=== PATIENT | male | born 1965 | race Caucasian/White ===

== ENCOUNTER 2019-12-14 18:33 | Inpatient (IN) ==
[2019-12-14] MEDS ORDERED: KETOROLAC TROMETHAMINE 15 MG/ML VIAL IV STA (18:55)
[2019-12-14] MEDS ORDERED: ONDANSETRON INJ 2 MG/ML 2 ML VIAL IV STA (18:55)
[2019-12-14] MEDS ORDERED: SODIUM CHLORIDE 0.9% 1000ML 1,000 ML IV SCH (19:00)
[2019-12-14 19:31] LABS: Basophils # (auto) 0.02 K/uL (0-0.2); Basophils % (auto) 0.3 %; Eosinophils # (auto) 0.06 K/uL (0-0.5); Hematocrit (blood only) 43.4 % (42-52); Hemoglobin 15.8 g/dL (14.0-18.0); Immature Granulocytes # (auto) 0.01 K/uL (0.00-0.02); Immature Granulocytes % (auto) 0.2 %; Lymphocytes # (auto) 1.43 K/uL (1.2-3.4); Lymphocytes % (auto) 23.6 %; Mean Corpuscular Hemoglobin 33.2 pg (25-34); Mean Corpuscular Hgb Conc 36.4 g/dL (32-36); Mean Corpuscular Volume 91.2 fL (80-100); Mean Platelet Volume 9.9 fL (7.4-10.4); Monocytes # (auto) 0.61 K/uL (0.11-0.59); Monocytes % (auto) 10.1 %; Neutrophils # (auto) 3.92 K/uL (1.4-6.5); Neutrophils % (auto) 64.8 %; Platelet Count 286 K/uL (130-400); RDW Standard Deviation 43.2 fL (36.4-46.3); Red Blood Count 4.76 M/uL (4.7-6.1); White Blood Count 6.05 K/uL (4.8-10.8)
[2019-12-14 19:45] LABS: Partial Thromboplastin Ratio 0.8; Partial Thromboplastin Time 22.2 Seconds (21.0-31.0); Prothrombin Time 10.7 Seconds (9.0-12.0)
[2019-12-14 20:07] LABS: Bilirubin Direct 3.9 mg/dl (0-0.2); Calcium 9.5 mg/dl (8.5-10.1); Creatinine Clr Calc Pharmacy 65.2 ml/min; Est GFR (African American) 65.6; Est GFR (Non-African American) 56.6
[2019-12-14 20:11] LABS: Bilirubin,Total 5.7 mg/dl (0.2-1); Total Protein 7.7 gm/dl (6.4-8.2)
[2019-12-14 20:28] LABS: Potassium 2.7 mmol/L (3.5-5.1)
--- NOTE | 2019-12-14 20:37 | History & Physical Report ---
Date of Service December 14, 2019 Assessment & Plan (1) Cholelithiasis with biliary obstruction: Cholelithiasis with intrahepatic and extrahepatic biliary obstruction/jaundice/gallstones- NPO MRCP tonight. Consult gastroenterology if ERCP needed. Consult general surgery after work-up complete. Ceftriaxone 1 g IV daily NSS + KCl 20 mEq at 100 mils per hour Zofran 4 mg IV every 6 hours as needed.. Famotidine 20 mg IV every 12 hours Morphine sulfate 4 mg IV every 3 hours as needed severe pain Toradol 30 mg IV every 6 hours PRN moderate pain Present on Admission?: Yes (2) Jaundice: See above Present on Admission?: Yes (3) Gallstones: See above Present on Admission?: Yes (4) GERD (gastroesophageal reflux disease): Change oral pantoprazole to IV famotidine Present on Admission?: Yes (5) Hypertension: Hold lisinopril/HCTZ Present on Admission?: Yes History of Present Illness Chief Complaint: The patient presents to the ED after being referred from the outpatient office due to abnormal LFT's and abdominal US. Primary Care Provider: Yoshi Perea MD The patient is a 54 yo Male who developed abdominal discomfort and nausea 4 days ago on Tuesday. He was seen at the outpatient office, and labs and abdominal US ordered were abnormal, and he was sent to the ED for further assessment. Allergies Allergy/AdvReac Type Severity Reaction Status Date / Time kiwi Allergy Unknown Unknown Unverified 12/14/19 19:50 pollen extracts Allergy Unknown WATERY Verified 12/14/19 19:50 EYES AND CONGESTION shellfish derived Allergy Unknown SOB, Verified 12/14/19 19:50 SWEATING No Known Drug Allergies Allergy Unknown Verified 12/14/19 19:50 Home Medications Home Medications Medication Instructions Recorded Confirmed Type lisinopril 20 1 tab PO DAILY 06/07/19 12/14/19 History mg-hydrochlorothiazide 12.5 mg tablet pantoprazole 40 mg tablet,delayed 40 mg PO DAILY #30 tab 12/13/19 12/14/19 Rx release Marshmallow Supp 1 tab PO DAILY 12/14/19 12/14/19 History aloe vera 0 mg PO DAILY 12/14/19 12/14/19 History amoxicillin-pot clavulanate 1 tab PO BID 5 Days #10 tab 12/18/19 Rx [Augmentin] oxycodone-acetaminophen [Percocet] 1 - 2 tab PO .q4-6h PRN #15 tab 12/18/19 Rx Past Med/Surg History Medical History Cardiac murmur A CHILD Chronic back pain GERD (gastroesophageal reflux disease) Hiatal hernia SMALL Hypertension (Unknown) Sleep apnea CPAP Temporomandibular joint disorder CLICKS ON OCC HAS NEVER LOCKED Surgical History (Updated 12/19/19 @ 09:09 by Sary Longoria RN) H/O eye surgery MUSCLE X 2 History of colonoscopy History of esophagogastroduodenoscopy (EGD) Nausea and vomiting after administration of anesthetic agent S/P laparoscopic cholecystectomy 12/17/[address] Kye Hinson Status post endoscopic retrograde cholangiopancreatography 12/17/19 Dr. 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 Beer every we Hx Substance Use: No caffeine: Yes (coffee 1-2 a day) during the past year weight has: remained stable Dental Care, Regularly: Yes Physical Activity Frequency: 1-2 Times per Week Seatbelt Use: always Sunscreen Use: Yes Review of Systems Review of Systems: The patient denies chest pain, palpitations, shortness of breath, dyspnea on exertion, cough, lower extremity swelling, sore throat, fevers, chills, sweats, vomiting, diarrhea , constipation,pelvic pain, blood in urine or stool, dysuria, urinary frequency or urgency, lightheadedness, dizziness, headache, memory loss, loss of consciousness, rash, abnormal bruising or bleeding, imbalance, focal or generalized weakness, numbness or tingling in arms or legs, generalized arthralgias or myalgias, neck pain, or night sweats. The review of systems is otherwise negative other than for that already noted above, and at least 10 systems have been reviewed. Physical Exam Physical Exam: The patient is awake, alert and oriented 3, well developed and well nourished, normocephalic and atraumatic, lying in bed and in no acute distress. HEENT--PERRL, EOMI, scleral icterus noted. Mucous membranes and oropharynx dry. Neck--supple. No JVD. No bruits. Thyroid normal, trachea midline, no adenopathy. Heart--normal S1 and S2. No murmurs, rubs or gallops. Lungs--clear bilaterally, no respiratory distress, no accessory muscle use. Abdomen--normal bowel sounds and soft. Nondistended. Mildly tender epigastrium and right upper quadrant. Mildly tympanitic. Extremities--no cyanosis or clubbing. No edema. Dermatologic--normal skin turgor, jaundiced appearing Neurologic--cranial nerves II through XII grossly intact. Rheumatologic--normal range of motion. Psychiatric--normal affect. Results & Data Vital Signs (Past 12 Hours) Vital Signs Temp Pulse Pulse Resp BP BP Pulse Ox 12/14/19 19:37 99 12/14/19 19:36 64 18 131/96 99 12/14/19 18:41 98.1 F 82 18 145/101 H 98 Laboratory Results Laboratory Results WBC 6.05 K/uL (4.8-10.8) 12/14/19 19:00 RBC 4.76 M/uL (4.7-6.1) 12/14/19 19:00 Hgb 15.8 g/dL (14.0-18.0) 12/14/19 19:00 Hct 43.4 % (42-52) 12/14/19 19:00 MCV 91.2 fL (80-100) 12/14/19 19:00 MCH 33.2 pg (25-34) 12/14/19 19:00 MCHC 36.4 g/dL (32-36) H 12/14/19 19:00 RDW Std Deviation 43.2 fL (36.4-46.3) 12/14/19 19:00 RDW Coeff of Maia 13.0 % (11.5-14.5) 12/14/19 19:00 Plt Count 286 K/uL (130-400) 12/14/19 19:00 MPV 9.9 fL (7.4-10.4) 12/14/19 19:00 Immature Gran % (Auto) 0.2 % 12/14/19 19:00 Neut % (Auto) 64.8 % 12/14/19 19:00 Lymph % (Auto) 23.6 % 12/14/19 19:00 [place] % (Auto) 10.1 % 12/14/19 19:00 Eos % (Auto) 1.0 % 12/14/19 19:00 Baso % (Auto) 0.3 % 12/14/19 19:00 Immature Gran # (Auto) 0.01 K/uL (0.00-0.02) 12/14/19 19:00 Neut # (Auto) 3.92 K/uL (1.4-6.5) 12/14/19 19:00 Lymph # (Auto) 1.43 K/uL (1.2-3.4) 12/14/19 19:00 [place] # (Auto) 0.61 K/uL (0.11-0.59) H 12/14/19 19:00 Eos # (Auto) 0.06 K/uL (0-0.5) 12/14/19 19:00 Baso # (Auto) 0.02 K/uL (0-0.2) 12/14/19 19:00 PT 10.7 Seconds (9.0-12.0) 12/14/19 19:00 INR 1.0 (0.9-1.1) 12/14/19 19:00 APTT 22.2 Seconds (21.0-31.0) 12/14/19 19:00 PTT Ratio 0.8 12/14/19 19:00 Sodium 138 mmol/L (136-145) 12/14/19 19:00 Potassium 2.7 mmol/L (3.5-5.1) L D 12/14/19 19:00 Chloride 102 mmol/L (98-107) 12/14/19 19:00 Carbon Dioxide 29 mmol/L (21-32) 12/14/19 19:00 Anion Gap 7.0 (3-11) 12/14/19 19:00 BUN 10 mg/dl (7-18) 12/14/19 19:00 Creatinine 1.40 mg/dl (0.6-1.4) D 12/14/19 19:00 Est Cr Clr Drug Dosing 65.2 ml/min 12/14/19 19:00 Est GFR ( Amer) 65.6 12/14/19 19:00 Est GFR (Non-Af Amer) 56.6 12/14/19 19:00 BUN/Creatinine Ratio 7.0 (10-20) L 12/14/19 19:00 Glucose 107 mg/dl (70-99) H 12/14/19 19:00 Calcium 9.5 mg/dl (8.5-10.1) 12/14/19 19:00 Total Bilirubin 5.7 mg/dl (0.2-1) H 12/14/19 19:00 Direct Bilirubin 3.9 mg/dl (0-0.2) H 12/14/19 19:00 AST 172 U/L (15-37) H 12/14/19 19:00 ALT 501 U/L (12-78) H 12/14/19 19:00 Alkaline Phosphatase 145 U/L (45-117) H 12/14/19 19:00 Total Protein 7.7 gm/dl (6.4-8.2) 12/14/19 19:00 Albumin 4.0 gm/dl (3.4-5.0) 12/14/19 19:00 Lipase 192 U/L (73-393) 12/14/19 19:00 Diagnostic Findings [facility] [place] [place] [phone] Ultrasound Report Patient: CHICHI SEAMAN DAdmit Date: 12/14/19 MR#: [id number] Acct ID:[id number]: Date: 1965City Zip: [place] [address] Age: 54Location: [place] Sex: M Room/Bed: Att Phy: Lucita Galvan-CDiagnosis: RIGHT UPPER QUAD PAIN,GERD,EPIGASTRIC PAIN Юлия Phy: Yoshi Perea, MDService Date: 12/14/19 [facility] Phy:Interpreting Phy: Negrito Gregorio MD Admit Phy: Ordering Phy: Lucita Galvan PA-C cc: ~ BILIARY ULTRASOUND CLINICAL HISTORY: R10.13 Epigastric pain COMPARISON STUDY: No previous studies for comparison. FINDINGS: The pancreas is largely obscured. The head and proximal body were unremarkable in appearance. There is a 5 mm left lobe hepatic cyst. There is intrahepatic biliary ductal dilatation. The common bile duct measures 11 mm. Multiple gallbladder calculi are visualized. There is also sludge present within the gallbladder. There is also evidence for ring down artifact suggesting adenomyomatosis. There is no significant gallbladder wall thickening. There is no right-sided hydronephrosis. IMPRESSION: 1. Cholelithiasis with intra and extrahepatic biliary ductal dilatation. ACT 112: Negative or not required by law. Electronically signed by: Negrito Gregorio M.D. 12/14/2019 9:29 AM Dictated: 12/14/1927 Transcribed: 12/14/1927 Code Status & VTE Plan Code Status Full code VTE Prophylaxis Plan VTE Prophylaxis will be ordered: Yes PG Care Time/CCT Total # of Minutes Spent Total Time Spent with Patient: Total time spent is greater than 50% in coordination of care (as documented) at patient's floor/unit and/or counseling patient: Coding Level of Care Code 27471 Initial Inpt Care Lvl 3 Diagnoses Cholelithiasis with biliary obstruction K80.21 Jaundice R17 Gallstones K80.20 GERD (gastroesophageal reflux disease) K21.9 Hypertension I10
[2019-12-14] MEDS ORDERED: KETOROLAC 30 MG/ML VIAL IV PRN (21:35)
[2019-12-14] MEDS ORDERED: MoRPHine SULFATE 4 MG/ML 1 ML CARP\\VIAL IV PRN (22:06)
[2019-12-14] MEDS ORDERED: ONDANSETRON INJ 2 MG/ML 2 ML VIAL IV PRN (22:06)
[2019-12-14] MEDS ORDERED: cefTRIAXone SODIUM 1,000 MG/50 ML BAG IV STA (22:06)
[2019-12-14] MEDS: cefTRIAXone SODIUM 1,000 MG in DEXTROSE 5% 50 ML IV SCH (22:37)
[2019-12-14] MEDS: FAMOTIDINE 20 MG in SYRINGE 3 ML IV SCH (23:43)
[2019-12-14] MEDS: NSS + 20MEQ KCL 20 MEQ/1,000 ML BAG IV SCH (23:43)
--- NOTE | 2019-12-14 23:45 | Emergency Department Note ---
Entered by Ronda Le acting as a scribe for Edinson Porter History of Present Illness General Chief complaint: Referred by Doctor Stated complaint: ABD PAIN - STONES AND BAD LIVER ENZYMES Time Seen by Provider: 12/14/19 18:53 Source: patient History of Present Illness Onset (ago): hour(s) (just prior to arrival) Location: head (general ) Pain Consistency: + other (episode ) Maximum Pain Intensity: 5 Current Pain Intensity: 5 Quality: + other (abnormal lab work ) Associated symptoms: + other (positive abdominal pain ); no fever/chills The patient is a 54 year old male who presents to the Emergency Room with complaints of an episode of abnormal labs that occurred just prior to arrival. The patient states that he had labs done yesterday afternoon and a gallbladder ultrasound today and was told to come to the ED after these results came back. The patient reports that he has had abdominal pain over the past several days. He rates this pain as a 5/10. The patient denies any fevers during this time. Home Medications Home Medications Medication Instructions Recorded Confirmed Type lisinopril 20 1 tab PO DAILY 06/07/19 12/14/19 History mg-hydrochlorothiazide 12.5 mg tablet pantoprazole 40 mg tablet,delayed 40 mg PO DAILY #30 tab 12/13/19 12/14/19 Rx release Marshmallow Supp 1 tab PO DAILY 12/14/19 12/14/19 History acetaminophen [Tylenol Extra 1,000 mg PO Q6H PRN 12/14/19 12/14/19 History Strength] aloe vera 0 mg PO DAILY 12/14/19 12/14/19 History Allergies Allergy/AdvReac Type Severity Reaction Status Date / Time kiwi Allergy Unknown Unknown Unverified 12/14/19 19:50 pollen extracts Allergy Unknown WATERY Verified 12/14/19 19:50 EYES AND CONGESTION shellfish derived Allergy Unknown SOB, Verified 12/14/19 19:50 SWEATING No Known Drug Allergies Allergy Unknown Verified 12/14/19 19:50 Past Med/Surg History Medical History (Updated 12/14/19 @ 21:32 by Paco Vergara MD) Cardiac murmur A CHILD Chronic back pain GERD (gastroesophageal reflux disease) Hiatal hernia SMALL Hypertension (Unknown) Sleep apnea CPAP Temporomandibular joint disorder CLICKS ON OCC HAS NEVER LOCKED Surgical History H/O eye surgery MUSCLE X 2 History of colonoscopy History of esophagogastroduodenoscopy (EGD) Nausea and vomiting after administration of anesthetic agent Family History Father Family history of esophageal cancer, Onset Age: 60 age 62 Brother Family hx of colon cancer, Onset Age: 61 Social History Preferred Language: Slovak Communication Ability: Effective 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 Beliefs That Will Affect Care: None marital status: Current Living Situation: Spouse and Family current occupational status: employed current occupation: Insurance [employer] Other Information That Helps Us Care for You: No Feels Safe at Home: Yes Safety Concerns: Feels Safe At This Time Smoking Status: Never smoker Do You Dip or Chew Tobacco: No ; Second Hand Exposure: No ; Tobacco Cessation Education Requested by Patient: No Hx Alcohol Use: Yes Alcohol type: beer and wine Alcohol Intake Frequency: Weekly Alcohol Intake Frequency Comment: 1 glass ine 2 times a week, ocassional mixed drink 4 months. Beer every we Hx Substance Use: No caffeine: Yes (coffee 1-2 a day) during the past year weight has: remained stable Dental Care, Regularly: Yes Physical Activity Frequency: 1-2 Times per Week Seatbelt Use: always Sunscreen Use: Yes Review of Systems See HPI for pertinent positives & negatives. and A total of 10 systems reviewed and were otherwise negative Physical Exam Vital Signs Vital Signs - 24 hr 12/14/19 18:41 12/14/19 19:36 12/14/19 19:37 Temperature 36.7 C Temperature Source Oral Pulse Rate 82 Pulse Rate [Left Finger] 64 Pulse Rhythm Regular Pulse Strength Normal Respiratory Rate 18 18 Respiratory Effort / Characteristics Non-Labored Spontaneous Respiratory Depth Normal Respiratory Pattern Regular Blood Pressure 145/101 H Blood Pressure [Left Arm] 131/96 Blood Pressure Mean 115 Blood Pressure Mean [Left Arm] 107 Blood Pressure Position Sitting Pulse Oximetry 98 99 99 Oxygen Delivery Method Room Air Room Air Sepsis Recent Fever Within 48 Hours No Sepsis New/Unexplained Change in Mental Status No Sepsis Action Taken by Nursing No Action Required GENERAL: He is oriented to person, place, and time. He appears well-developed and well-nourished. He does not appear distressed. HENT: Exam performed. - Head: Normocephalic and atraumatic. - Right Ear: External ear normal. No mastoid tenderness. - Left Ear: External ear normal. No mastoid tenderness. - Mouth/Throat: The oropharynx is clear and moist. No trismus in the jaw. No dental abscesses or uvula swelling. No oropharyngeal exudate or tonsillar abscesses. EYES: Conjunctivae and EOM are normal. Pupils are equal, round, and reactive to light. Right eye exhibits no discharge. Left eye exhibits no discharge. Scleral icterus present. NECK: Normal range of motion. Neck supple. No JVD present. No spinous process tenderness present. No carotid bruit present. No rigidity. No tracheal deviation and normal range of motion present. No Brudzinski's sign and no Kernig's sign noted. CV: Normal rate, regular rhythm, normal heart sounds and intact distal pulses. There is no peripheral edema. Palpable radial pulses bue. PULM/CHEST: Effort normal and breath sounds normal. No respiratory distress. No stridor. He has no wheezes. He has no rales. - Chest Wall: He exhibits no tenderness. ABD: The abdomen is soft. Bowel sounds are normal. He has no distension. No mass is present. There is no tenderness. There is no rebound, no guarding, no Null's sign and no tenderness at McBurney's point. Rovsig negative. MUSC/SKEL: Normal range of motion. There is no peripheral edema, tenderness or deformity. LYMPH: No cervical adenopathy. NEURO: He is alert and oriented to person, place, and time. He has normal strength. No cranial nerve deficit or sensory deficit. Coordination and gait normal. GCS eye subscore is 4. GCS verbal subscore is 5. GCS motor subscore is 6. Cerebellar tests wnl. SKIN: Skin is warm and dry. He is not diaphoretic. PSYCH: He has a normal mood and affect. Behavior is normal. Judgment and thought content normal. Course Course 185: Past medical records reviewed. The patient was evaluated in room C12B. A complete history and physical exam was performed. EMR reviewed showed that the patient had labs done today that showed a white count of 4.16, an AST of 152, ALT of 495, total bilirubin of 4.9, and alkaline phosphatase of 137. A gallbladder ultrasound today showed cholelithiasis and intra and extra hepatic biliary dilatation. Given these findings patient will be admitted for GI and surgical evaluation. I discussed the case with Dr. Vergara-[facility] Hospitalist who accepts the patient for further evaluation. Administered Medications Ceftriaxone Sodium 1,000 mg/ (Dextrose) 50 mls @ 100 mls/hr IV DAILY JAGUAR Stop: 12/24/19 10:29 Last Admin: 12/14/19 22:37 Dose: Not Given Documented by: [id number] Discontinued Medications Sodium Chloride (Nss 1000ml) 1,000 mls @ 125 mls/hr IV .Q8H JAGUAR Stop: 01/13/20 18:59 Last Infusion: 12/14/19 22:05 Dose: 0 mls/hr Documented by: [id number] Admin: 12/14/19 19:34 Dose: 125 mls/hr Documented by: [id number] Ketorolac Tromethamine (Toradol) 15 mg IV NOW STA Stop: 12/14/19 18:56 Last Admin: 12/14/19 19:34 Dose: 15 mg Documented by: [id number] Ondansetron HCl (Zofran) 4 mg IV NOW STA Stop: 12/14/19 18:56 Last Admin: 12/14/19 19:34 Dose: 4 mg Documented by: [id number] Medical Decision Making Medical Records Attestation: I reviewed the patient's medical records. Home Medications Current Medication List: was personally reviewed by me Laboratory Data Attestation: I reviewed the patient's lab results. Result diagrams: 12/14/19 19:00 12/14/19 19:00 Lab Results 12/14/19 12/14/19 12/14/19 Range/Units 19:00 19:00 19:00 WBC 6.05 (4.8-10.8) K/uL RBC 4.76 (4.7-6.1) M/uL Hgb 15.8 (14.0-18.0) g/dL Hct 43.4 (42-52) % MCV 91.2 (80-100) fL MCH 33.2 (25-34) pg MCHC 36.4 H (32-36) g/dL RDW Std Deviation 43.2 (36.4-46.3) fL RDW Coeff of Maia 13.0 (11.5-14.5) % Plt Count 286 (130-400) K/uL MPV 9.9 (7.4-10.4) fL Immature Gran % (Auto) 0.2 % Neut % (Auto) 64.8 % Lymph % (Auto) 23.6 % [place] % (Auto) 10.1 % Eos % (Auto) 1.0 % Baso % (Auto) 0.3 % Immature Gran # (Auto) 0.01 (0.00-0.02) K/uL Neut # (Auto) 3.92 (1.4-6.5) K/uL Lymph # (Auto) 1.43 (1.2-3.4) K/uL [place] # (Auto) 0.61 H (0.11-0.59) K/uL Eos # (Auto) 0.06 (0-0.5) K/uL Baso # (Auto) 0.02 (0-0.2) K/uL PT 10.7 (9.0-12.0) Seconds INR 1.0 (0.9-1.1) APTT 22.2 (21.0-31.0) Seconds PTT Ratio 0.8 Sodium 138 (136-145) mmol/L Potassium 2.7 L D (3.5-5.1) mmol/L Chloride 102 (98-107) mmol/L Carbon Dioxide 29 (21-32) mmol/L Anion Gap 7.0 (3-11) BUN 10 (7-18) mg/dl Creatinine 1.40 D (0.6-1.4) mg/dl Est Cr Clr Drug Dosing 65.2 ml/min Est GFR ( Amer) 65.6 Est GFR (Non-Af Amer) 56.6 BUN/Creatinine Ratio 7.0 L (10-20) Glucose 107 H (70-99) mg/dl Calcium 9.5 (8.5-10.1) mg/dl Total Bilirubin 5.7 H (0.2-1) mg/dl Direct Bilirubin 3.9 H (0-0.2) mg/dl AST 172 H (15-37) U/L ALT 501 H (12-78) U/L Alkaline Phosphatase 145 H (45-117) U/L Total Protein 7.7 (6.4-8.2) gm/dl Albumin 4.0 (3.4-5.0) gm/dl Lipase 192 (73-393) U/L Blood Pressure Blood Pressure Findings: Elevated blood pressure Blood Pressure Disposition: further management by hospitalist GIAN Narrative Past medical records reviewed. The patient was evaluated in room C12B. A c omplete history and physical exam was performed. EMR reviewed showed that the patient had labs done today that showed a white count of 4.16, an AST of 152, ALT of 495, total bilirubin of 4.9, and alkaline phosphatase of 137. A gallbladder ultrasound today showed cholelithiasis and intra and extra hepatic biliary dilatation. Given these findings patient will be admitted for GI and surgical evaluation. I discussed the case with Dr. Vergara-[facility] Hospitalist who accepts the patient for further evaluation. Impression & Plan Jaundice, Gallstones Discharge Plan Visit Data *Final* Discharge Date/Time: 12/14/19 21:57 Chief Complaint: Referred by Doctor Stated Complaint: ABD PAIN - STONES AND BAD LIVER ENZYMES ED Provider: Edinson Porter Discharge Problem: Jaundice, Gallstones Patient Disposition: Admitted As Inpatient Discharge Instructions Interventions: ED Discharge Assessment Last Done: 12/14/19 21:57 The scribe's documentation has been prepared under my direction and personally reviewed by me in its entirety. I confirm that the note above accurately reflects all work, treatment, procedures, and medical decision making performed by me.
[2019-12-15 07:09] LABS: Basophils # (auto) 0.03 K/uL (0-0.2); Basophils % (auto) 0.5 %; Eosinophils # (auto) 0.11 K/uL (0-0.5); Eosinophils % (auto) 1.8 %; Hematocrit (blood only) 38.1 % (42-52); Hemoglobin 13.2 g/dL (14.0-18.0); Immature Granulocytes # (auto) 0.02 K/uL (0.00-0.02); Immature Granulocytes % (auto) 0.3 %; Lymphocytes # (auto) 1.26 K/uL (1.2-3.4); Lymphocytes % (auto) 21.1 %; Mean Corpuscular Hemoglobin 31.9 pg (25-34); Mean Corpuscular Hgb Conc 34.6 g/dL (32-36); Mean Platelet Volume 9.6 fL (7.4-10.4); Monocytes # (auto) 0.64 K/uL (0.11-0.59); Monocytes % (auto) 10.7 %; Neutrophils # (auto) 3.92 K/uL (1.4-6.5); Neutrophils % (auto) 65.6 %; Platelet Count 222 K/uL (130-400); RDW Coefficient of Variation 13.2 % (11.5-14.5); RDW Standard Deviation 44.1 fL (36.4-46.3); Red Blood Count 4.14 M/uL (4.7-6.1); White Blood Count 5.98 K/uL (4.8-10.8)
--- NOTE | 2019-12-15 07:26 | Magnetic Resonance Report ---
MR MRCP HISTORY: cholelithiasis, bile duct dilatation, abnormal LFT TECHNIQUE: MRCP of the abdomen was performed without contrast cord to standard departmental protocol. COMPARISON STUDY: Abdominal ultrasound 12/14/2019. FINDINGS: There is a 5 mm T2 hyperintense lesion within the left hepatic lobe. There is a 7 mm T2 hyp erintense lesion within the lower pole the right kidney and a 1 cm T2 hyperintense exophytic lesion w ithin the interpolar region of the right kidney. These lesions likely represent cysts. The spleen, ad renal glands, and left kidney are unremarkable. No retroperitoneal lymphadenopathy. There is mild int ra and extra hepatic bile duct dilatation. The common bile duct measures 9 mm in diameter. The main p ancreatic duct is normal and course and caliber. No retroperitoneal lymphadenopathy. The gallbladder is mildly distended. There are multiple punctate gallstones. No gallbladder wall thickening. Equivoca l punctate stone at the distal common bile duct only seen on the axial fiesta sequences image 65. IMPRESSION: 1. Mild intra and extrahepatic bile duct dilatation. Questionable punctate stone at the distal common bile duct. ERCP follow-up recommended for further evaluation. 2. Cholelithiasis and a mildly distended gallbladder. No gallbladder wall thickening. 3. These findings were called/faxed to the referring physician following dictation. ACT 112: Negative or not required by law. Electronically signed by: Jose Carlos Horowitz M.D. 12/15/2019 7:24 AM
[2019-12-15 07:47] LABS: Albumin Level 3.1 gm/dl (3.4-5.0); BUN Creatinine Ratio 10.1 (10-20); Bilirubin,Total 4.4 mg/dl (0.2-1); Calcium 8.6 mg/dl (8.5-10.1); Creatinine Clr Calc Pharmacy 78.9 ml/min; Est GFR (Non-African American) 72.5; Globulin 3.2 gm/dl (2.5-4.0); Potassium 3.5 mmol/L (3.5-5.1); Total Protein 6.3 gm/dl (6.4-8.2)
[2019-12-15] MEDS: NSS + 20MEQ KCL 20 MEQ/1,000 ML BAG IV SCH ×2 (08:31→18:23)
[2019-12-15] MEDS: FAMOTIDINE 20 MG in SYRINGE 3 ML IV SCH ×2 (09:13→21:22)
--- NOTE | 2019-12-15 11:03 | Surgery Consultation ---
Date of Consultation December 15, 2019 Supervising Physician Co-Signing Physician Notes Patient likely with common bile duct junction from stones and debris from the gallbladder At some point he will need cholecystectomy, likely laparoscopic He may require ERCP and we can possibly coordinate the 2 procedures Continue current treatment for now History of Present Illness Attending Physician: Maikol Douglas MD History of Present Illness 54-year-old male admitted to the emergency room with epigastric pain which she has had over the last 3 to 4 days Found on work-up with elevated liver function studies and a total bilirubin greater than 5 Ultrasound shows all stones and dilated gallbladder with dilated common bile duct to 11 mm He underwent MRCP which shows possible stone/debris in the distal common bile duct Allergies Allergy/AdvReac Type Severity Reaction Status Date / Time kiwi Allergy Unknown Unknown Unverified 12/14/19 19:50 pollen extracts Allergy Unknown WATERY Verified 12/14/19 19:50 EYES AND CONGESTION shellfish derived Allergy Unknown SOB, Verified 12/14/19 19:50 SWEATING No Known Drug Allergies Allergy Unknown Verified 12/14/19 19:50 Home Medications Home Medications Medication Instructions Recorded Confirmed Type lisinopril 20 1 tab PO DAILY 06/07/19 12/14/19 History mg-hydrochlorothiazide 12.5 mg tablet pantoprazole 40 mg tablet,delayed 40 mg PO DAILY #30 tab 12/13/19 12/14/19 Rx release Marshmallow Supp 1 tab PO DAILY 12/14/19 12/14/19 History acetaminophen [Tylenol Extra 1,000 mg PO Q6H PRN 12/14/19 12/14/19 History Strength] aloe vera 0 mg PO DAILY 12/14/19 12/14/19 History Patient History Medical History (Updated 12/14/19 @ 21:32 by Paco Vergara MD) Cardiac murmur A CHILD Chronic back pain GERD (gastroesophageal reflux disease) Hiatal hernia SMALL Hypertension (Unknown) Sleep apnea CPAP Temporomandibular joint disorder CLICKS ON OCC HAS NEVER LOCKED Surgical History H/O eye surgery MUSCLE X 2 History of colonoscopy History of esophagogastroduodenoscopy (EGD) Nausea and vomiting after administration of anesthetic agent Family History Father Family history of esophageal cancer, Onset Age: 60 age 62 Brother Family hx of colon cancer, Onset Age: 61 Social History Preferred Language: Khmer Communication Ability: Effective Appointment Manager Required: No Beliefs That Will Affect Care: None marital status: Current Living Situation: Spouse and Family current occupational status: employed current occupation: [employer] Other Information That Helps Us Care for You: No Feels Safe at Home: Yes Safety Concerns: Feels Safe At This Time Smoking Status: Never smoker Do You Dip or Chew Tobacco: No ; Second Hand Exposure: No ; Tobacco Cessation Education Requested by Patient: No Hx Alcohol Use: Yes Alcohol type: beer and wine Alcohol Intake Frequency: Weekly Alcohol Intake Frequency Comment: 1 glass ine 2 times a week, ocassional mixed drink 4 months. Beer every we Hx Substance Use: No caffeine: Yes (coffee 1-2 a day) during the past year weight has: remained stable Dental Care, Regularly: Yes Physical Activity Frequency: 1-2 Times per Week Seatbelt Use: always Sunscreen Use: Yes Review of Systems Review of Systems: All systems reviewed & are unremarkable except as noted in HPI & below Physical Exam Constitutional: well nourished; no acute distress and not ill appearing Eyes: + anicteric sclerae Respiratory: normal respiratory effort; no respiratory distress Cardiovascular: Rate/Rhythm: regular rate and regular rhythm Gastrointestinal (Abdomen): Inspection/Auscultation: abdomen not distended Percussion/Palpation: + abdomen tender Skin: no rashes, warm and dry Neurologic: awake Psychiatric: Orientation: alert Results & Data Vital Signs (Past 12 Hours) Vital Signs Temp Pulse Resp BP Pulse Ox 12/15/19 07:20 37.3 C 61 18 128/69 96 12/15/19 00:04 36.8 C 60 20 144/86 H 99 I did review his ultrasound and MRCP PG Care Time/CCT Total # of Minutes Spent Total Time Spent with Patient: Total time spent is greater than 50% in coordination of care (as documented) at patient's floor/unit and/or counseling patient: Coding Level of Care Code 48845 Inpt Consult Level 4
--- NOTE | 2019-12-15 13:07 | Hospitalist Progress Note ---
Date of Service December 15, 2019 Assessment & Plan (1) Cholelithiasis with biliary obstruction: Cholelithiasis with intrahepatic and extrahepatic biliary obstruction/jaundice/gallstones- MRCP showing mild intra and extrahepatic bile duct dilatation. Questionable punctate stone at the distal common bile duct. ERCP follow-up recommended for further evaluation. Cholelithiasis and a mildly distended gallbladder. No gallbladder wall thickening. Consulted gastroenterology and surgery Continue Ceftriaxone 1 g IV daily NSS + KCl 20 mEq at 100 mils per hour Zofran 4 mg IV every 6 hours as needed.. Famotidine 20 mg IV every 12 hours Morphine sulfate 4 mg IV every 3 hours as needed severe pain Toradol 30 mg IV every 6 hours PRN moderate pain Some improvement in bili and transaminases today but still elevated (2) Jaundice: See above (3) Gallstones: See above (4) GERD (gastroesophageal reflux disease): Changed oral pantoprazole to IV famotidine (5) Hypertension: Continue to hold lisinopril/HCTZ, blood pressures stable Admission and Anticipated Discharge Date Admission Date: December 14, 2019 Subjective Mr. Bazan continues to have some ruq discomfort but otherwise has no complaints. No n/v/d. ROS Constitutional: no chills, aches, sweats or fever Respiratory: no sob,cough, sputum, or wheezing Cardiac: no chest pain, palpitations, edema, orthopnea or lightheadedness GI: no abdominal pain, nausea, vomiting, diarrhea or constipation : no dysuria or hesitancy Extremities: no joint pain or weakness Skin: no rash All other systems reviewed and negative Physical Exam Physical Exam: General: no distress Eyes: normal inspection, PERLL Respiratory: chest non tender, clear to auscultation, normal breath sounds, no respiratory distress, no accessory muscle use Cardiac: regular rate and rhythm, no rub or gallop, no murmur, no edema, no jvd GI/: active bowel sounds, no abd pain or tenderness, soft, non distended Extremities: normal range of motion, normal strength, non tender Neuro/Psych: alert and oriented x 3, normal mood and affect Skin: normal color, dry Results & Data ([facility]) Vital Signs (Past 12 Hours) Vital Signs Temp Pulse Resp BP Pulse Ox 12/15/19 07:20 37.3 C 61 18 128/69 96 PG Care Time/CCT Total # of Minutes Spent Total Time Spent with Patient: Total time spent is greater than 50% in coordination of care (as documented) at patient's floor/unit and/or counseling patient: Coding Level of Care Code 73418 Subseq Hosp Care Lvl 2 Diagnoses Cholelithiasis with biliary obstruction K80.21 Jaundice R17 Gallstones K80.20 GERD (gastroesophageal reflux disease) K21.9 Hypertension I10
[2019-12-15] MEDS: cefTRIAXone SODIUM 1,000 MG in DEXTROSE 5% 50 ML IV SCH (13:32)
--- NOTE | 2019-12-15 18:32 | Consultation Report ---
DATE OF CONSULTATION: 12/15/2019 GASTROENTEROLOGY CONSULTATION REFERRED BY: ABHISHEK Diaz. REASON FOR CONSULTATION: I was asked by Kendra Kenney to consult on this gentleman for evaluation of abdominal pain and abnormal liver enzymes. HISTORY OF PRESENT ILLNESS: The patient is a 54-year-old and his is present at the bedside. He presented to the Emergency Room, referred from his outpatient doctor's office because of abnormal liver enzymes. He has been developing abdominal discomfort and nausea for about 4 days and was found to have obstructive jaundice pattern on liver enzymes and was referred to the Emergency Room. He states that the pain is in the epigastric area radiating to the right upper quadrant and even sometimes to his shoulder. He denies any fevers. He has noticed that his urine has become a little bit darker and he has turned a little bit yellow. He has a history of GERD symptoms as well and his GERD is well controlled on his Protonix daily. He denies dysphagia. PAST MEDICAL HISTORY: I reviewed his medical records and his past medical history and his past medical history is significant for what is already mentioned as well as chronic back pain, hiatal hernia, hypertension, sleep apnea, and TMJ. OUTPATIENT MEDICATIONS: Include lisinopril/hydrochlorothiazide, pantoprazole. ALLERGIES: HE STATES HE IS ALLERGIC TO KIWI, POLLEN EXTRACTS, SHELLFISH. SOCIAL HISTORY: Not significant for active smoking and he only rarely drinks alcohol. FAMILY HISTORY: Significant for colon cancer and esophageal cancer. He is up to date on colon cancer screening and had a recent upper endoscopy. REVIEW OF SYSTEMS: As above, otherwise he denies any recent change in vision or hearing. He has had no seizures. He has had no productive cough or palpitations or shortness of breath on exertion. He denies any joint swelling. He denies any bruising or bleeding. He has had no dysuria. He denies any heat or cold intolerance. He denies any issues with ambulation. He has had no rashes. He denies any polyuria and polydipsia. PHYSICAL EXAMINATION: GENERAL: Reveals a pleasant gentleman with a recent blood pressure of 128/69, pulse is 61, temperature is 37.3 centigrade. HEENT: Skin is slightly icteric with slight icteric sclerae. Mouth is clear of lesions with moist mucous membranes. NECK: Supple. CHEST: Clear. HEART: Regular rate and rhythm. ABDOMEN: Benign with good bowel sounds. There is no organomegaly, masses, rebound tenderness noted. He does have some slight tenderness to deep palpation in the right upper quadrant and epigastric area. EXTREMITIES: Warm, good distal pulses. No edema. NEUROLOGIC: He is grossly intact and alert and oriented x3. LABORATORIES: Show a recent white blood cell count of 5.9, hemoglobin of 13.2 and a platelet count of 222,000. Liver enzymes show a total bilirubin yesterday of 5.7, down to 4.4 today, his AST is 154, ALT is 425, alkaline phosphatase is 118. IMAGING: Showed an MRI with mild intra and extrahepatic duct dilatation and possible small stone in the distal common bile duct. There is also cholelithiasis noted and a distended gallbladder. IMPRESSION AND PLAN: A 54-year-old gentleman with cholelithiasis and choledocholithiasis with abnormal liver enzymes in an obstructive pattern. I think it is reasonable if surgery agrees that he could be put on clears since he seems to be doing well. It would be reasonable to coordinate an ERCP with a laparoscopic cholecystectomy if this works for the surgery team as well to minimize his anesthesia risk. I will discuss this with our advanced team as well. Continue current therapy, and I discussed this with the patient and his , and they are agreeable with this plan.
[2019-12-16] MEDS: NSS + 20MEQ KCL 20 MEQ/1,000 ML BAG IV SCH ×3 (04:00→23:30)
[2019-12-16 05:39] LABS: Basophils # (auto) 0.02 K/uL (0-0.2); Basophils % (auto) 0.4 %; Eosinophils # (auto) 0.13 K/uL (0-0.5); Eosinophils % (auto) 2.6 %; Hematocrit (blood only) 36.8 % (42-52); Hemoglobin 12.7 g/dL (14.0-18.0); Immature Granulocytes # (auto) 0.01 K/uL (0.00-0.02); Immature Granulocytes % (auto) 0.2 %; Lymphocytes # (auto) 1.07 K/uL (1.2-3.4); Lymphocytes % (auto) 21.6 %; Mean Corpuscular Hemoglobin 32.2 pg (25-34); Mean Corpuscular Hgb Conc 34.5 g/dL (32-36); Mean Corpuscular Volume 93.4 fL (80-100); Mean Platelet Volume 9.9 fL (7.4-10.4); Monocytes # (auto) 0.53 K/uL (0.11-0.59); Monocytes % (auto) 10.7 %; Neutrophils # (auto) 3.19 K/uL (1.4-6.5); Neutrophils % (auto) 64.5 %; Platelet Count 223 K/uL (130-400); RDW Coefficient of Variation 13.3 % (11.5-14.5); RDW Standard Deviation 45.7 fL (36.4-46.3); Red Blood Count 3.94 M/uL (4.7-6.1); White Blood Count 4.95 K/uL (4.8-10.8)
[2019-12-16 06:10] LABS: Albumin Level 3.1 gm/dl (3.4-5.0); Calcium 8.5 mg/dl (8.5-10.1); Creatinine Clr Calc Pharmacy 79.6 ml/min; Est GFR (African American) 84.9; Est GFR (Non-African American) 73.3; Potassium 3.5 mmol/L (3.5-5.1)
[2019-12-16 06:19] LABS: Globulin 3.1 gm/dl (2.5-4.0); Total Protein 6.2 gm/dl (6.4-8.2)
--- NOTE | 2019-12-16 07:15 | Surgery Progress Note ---
Date of Service December 16, 2019 Assessment & Plan (1) Cholelithiasis with biliary obstruction: no acute worsening plan- probable ERCP/ lap diane tomorrow- 12/17- I added him to my OR- later morning will coordinate with GI- can adjust as needed clears for now, cont IV atbx check am labs Subjective awake , alert min abd pain afeb Physical Exam Constitutional: well developed; no acute distress Eyes: sclerae not anicteric Respiratory: normal respiratory effort; no respiratory distress Cardiovascular: Rate/Rhythm: regular rhythm Gastrointestinal (Abdomen): Inspection/Auscultation: abdomen not distended Skin: no rashes, warm and dry Neurologic: awake Psychiatric: Orientation: alert Results & Data Vital Signs (Past 12 Hours) Vital Signs Temp Pulse Resp BP Pulse Ox 12/16/19 07:07 36.7 C 81 18 137/78 95 12/15/19 23:20 37.3 C 59 L 18 148/80 H 99 PG Care Time/CCT Total # of Minutes Spent Total Time Spent with Patient: Total time spent is greater than 50% in coordination of care (as documented) at patient's floor/unit and/or counseling patient: Coding Level of Care Code 21011 Inpt Consult Level 3 Diagnoses Cholelithiasis with biliary obstruction K80.21
[2019-12-16] MEDS: cefTRIAXone SODIUM 1,000 MG in DEXTROSE 5% 50 ML IV SCH (08:57)
[2019-12-16] MEDS: LISINOPRIL/HCTZ 20/12.5MG 1 TAB TAB PO SCH (08:57)
[2019-12-16] MEDS: PANTOprazole 40 MG TAB PO SCH (08:57)
[2019-12-16] MEDS: FAMOTIDINE 20 MG in SYRINGE 3 ML IV SCH ×2 (09:00→21:08)
--- NOTE | 2019-12-16 11:38 | Hospitalist Progress Note ---
Date of Service December 16, 2019 Assessment & Plan (1) Cholelithiasis with biliary obstruction: Cholelithiasis with intrahepatic and extrahepatic biliary obstruction/jaundice/gallstones- MRCP showing mild intra and extrahepatic bile duct dilatation. Questionable punctate stone at the distal common bile duct. ERCP follow-up recommended for further evaluation. Cholelithiasis and a mildly distended gallbladder. No gallbladder wall thickening. Consulted gastroenterology and surgery - will have ERCP and cholecystectomy tomorrow Continue Ceftriaxone 1 g IV daily NSS + KCl 20 mEq at 100 mils per hour Zofran 4 mg IV every 6 hours as needed.. Famotidine 20 mg IV every 12 hours Morphine sulfate 4 mg IV every 3 hours as needed severe pain Toradol 30 mg IV every 6 hours PRN moderate pain Some improvement in bili and transaminases today but still elevated. Pain is much more tolerable (2) Jaundice: See above (3) Gallstones: See above (4) GERD (gastroesophageal reflux disease): Changed oral pantoprazole to IV famotidine (5) Hypertension: Continue to hold lisinopril/HCTZ, blood pressures stable (6) DVT prophylaxis: SCDs Admission and Anticipated Discharge Date Admission Date: December 14, 2019 Subjective Mr Bazan is feeling better, no abdominal pain. Tolerating clears. ROS Constitutional: no chills, aches, sweats or fever Respiratory: no sob,cough, sputum, or wheezing Cardiac: no chest pain, palpitations, edema, orthopnea or lightheadedness GI: no abdominal pain, nausea, vomiting, diarrhea or constipation : no dysuria or hesitancy Extremities: no joint pain or weakness Skin: no rash All other systems reviewed and negative Physical Exam Physical Exam: General: no distress Eyes: normal inspection, PERLL Respiratory: chest non tender, clear to auscultation, normal breath sounds, no respiratory distress, no accessory muscle use Cardiac: regular rate and rhythm, no rub or gallop, no murmur, no edema, no jvd GI/: active bowel sounds, no abd pain or tenderness, soft, non distended Extremities: normal range of motion, normal strength, non tender Neuro/Psych: alert and oriented x 3, normal mood and affect Skin: normal color, dry Results & Data ([facility]) Vital Signs (Past 12 Hours) Vital Signs Temp Pulse Resp BP Pulse Ox 12/16/19 07:07 36.7 C 81 18 137/78 95 PG Care Time/CCT Total # of Minutes Spent Total Time Spent with Patient: Total time spent is greater than 50% in coordination of care (as documented) at patient's floor/unit and/or counseling patient: Coding Level of Care Code 46311 Subseq Hosp Care Lvl 2 Diagnoses Cholelithiasis with biliary obstruction K80.21 Jaundice R17 Gallstones K80.20 GERD (gastroesophageal reflux disease) K21.9 Hypertension I10 DVT prophylaxis Z29.9
[2019-12-17 05:55] LABS: Basophils # (auto) 0.03 K/uL (0-0.2); Basophils % (auto) 0.7 %; Eosinophils # (auto) 0.17 K/uL (0-0.5); Eosinophils % (auto) 4.2 %; Hematocrit (blood only) 35.5 % (42-52); Hemoglobin 12.2 g/dL (14.0-18.0); Lymphocytes # (auto) 1.38 K/uL (1.2-3.4); Lymphocytes % (auto) 34.2 %; Mean Corpuscular Hemoglobin 32.2 pg (25-34); Mean Corpuscular Hgb Conc 34.4 g/dL (32-36); Mean Corpuscular Volume 93.7 fL (80-100); Mean Platelet Volume 9.7 fL (7.4-10.4); Monocytes # (auto) 0.43 K/uL (0.11-0.59); Monocytes % (auto) 10.7 %; Neutrophils # (auto) 2.02 K/uL (1.4-6.5); Neutrophils % (auto) 50.2 %; Platelet Count 206 K/uL (130-400); RDW Coefficient of Variation 13.4 % (11.5-14.5); RDW Standard Deviation 45.9 fL (36.4-46.3); Red Blood Count 3.79 M/uL (4.7-6.1); White Blood Count 4.03 K/uL (4.8-10.8)
--- NOTE | 2019-12-17 06:14 | Surgery Progress Note ---
Date of Service December 17, 2019 Assessment & Plan (1) Cholelithiasis with biliary obstruction: check this am with GI team for ERCP, lap diane- hopefully later today no acute changes Results & Data Vital Signs (Past 12 Hours) Vital Signs Temp Pulse Resp BP Pulse Ox 12/16/19 23:28 36.8 C 57 L 15 141/82 H 97 PG Care Time/CCT Total # of Minutes Spent Total Time Spent with Patient: Total time spent is greater than 50% in coordination of care (as documented) at patient's floor/unit and/or counseling patient: Coding Level of Care Code None Diagnoses Cholelithiasis with biliary obstruction K80.21
[2019-12-17 06:30] LABS: Albumin Level 2.9 gm/dl (3.4-5.0); BUN Creatinine Ratio 9.3 (10-20); Calcium 8.5 mg/dl (8.5-10.1); Creatinine Clr Calc Pharmacy 88.2 ml/min; Est GFR (African American) 96.1; Est GFR (Non-African American) 82.9; Potassium 3.7 mmol/L (3.5-5.1)
[2019-12-17 06:42] LABS: Albumin Globulin Ratio 0.9 (0.9-2); Bilirubin,Total 2.1 mg/dl (0.2-1); Globulin 3.2 gm/dl (2.5-4.0); Total Protein 6.1 gm/dl (6.4-8.2)
[2019-12-17] MEDS: LISINOPRIL/HCTZ 20/12.5MG 1 TAB TAB PO SCH (07:38)
[2019-12-17] MEDS: PANTOprazole 40 MG TAB PO SCH (07:39)
[2019-12-17] MEDS: cefTRIAXone SODIUM 1,000 MG in DEXTROSE 5% 50 ML IV SCH (07:42)
[2019-12-17] MEDS ORDERED: INDOMETHACIN 50 MG SUPP PR ONE ×2 (08:15→14:57)
[2019-12-17] MEDS: FAMOTIDINE 20 MG in SYRINGE 3 ML IV SCH ×2 (10:01→21:21)
[2019-12-17] MEDS: NSS + 20MEQ KCL 20 MEQ/1,000 ML BAG IV SCH (10:01)
--- NOTE | 2019-12-17 10:14 | Gastroenterology Progress Note ---
Date of Service December 17, 2019 Assessment & Plan (1) Cholelithiasis with biliary obstruction: (2) Elevated LFTs: Pt is a 54 y/o male, admitted with abd pain, nausea, elevated LFTs, found to have cholelithiasis and likely choledocholithiasis. - Trend LFTs - Keep NPO for tandem ERCP, lap cholecystectomy in OR today - Continue IV antibx Admission and Anticipated Discharge Date Admission Date: December 14, 2019 Supervising Physician Co-Signing Physician Notes I performed a history and physical examination of the patient today, including specifically on physical exam - soft abdomen. I have discussed the patient's management with the advanced practitioner. Please refer to the nurse practitioner's note for the documented findings and plan of care. ERCP today Subjective Pt denies fever, chills, CP, SOB, abd pain, n/v. Passing flatus and Last BM yesterday. LFTs trending down Review of Systems Review of Systems: All systems reviewed & are unremarkable except as noted in HPI & below Physical Exam Constitutional: WD/WN, vitals as above well groomed, cooperative and comfortable Eyes: PERRL, conjunctivae normal, anicteric sclerae ENMT: external ear and nose normal, oropharynx normal Respiratory: normal respiratory effort, lungs clear to auscultation Cardiovascular: RRR, no murmur, no edema Gastrointestinal (Abdomen): normal bowel sounds, soft, nontender, no hepatosplenomegaly Skin: no rashes, warm and dry no jaundice Psychiatric: A+Ox3, euthymic affect Lymphatic: no lymphedema Results & Data ([facility]) Vital Signs (Past 12 Hours) Vital Signs Temp Pulse Resp BP Pulse Ox 12/17/19 07:28 36.5 C 55 L 16 153/89 H 97 12/16/19 23:28 36.8 C 57 L 15 141/82 H 97
--- NOTE | 2019-12-17 10:34 | Electrocardiogram Report ---
Test Reason : Blood Pressure : / mmHG Vent. Rate : 057 BPM Atrial Rate : 057 BPM P-R Int : 138 ms QRS Dur : 106 ms QT Int : 406 ms P-R-T Axes : 031 020 043 degrees QTc Int : 395 ms Sinus bradycardia Otherwise normal ECG No previous ECGs available Confirmed by Theron Perdomo ([id number]) on 12/17/2019 10:33:49 AM Referred By: Lucita Galvan Confirmed By:Iggy Perdomo
--- NOTE | 2019-12-17 11:00 | Hospitalist Progress Note ---
Date of Service December 17, 2019 Assessment & Plan (1) Cholelithiasis with biliary obstruction: * Cholelithiasis with intrahepatic and extrahepatic biliary obstruction/jaundice/gallstones- * MRCP showing mild intra and extrahepatic bile duct dilatation. Questionable punctate stone at the distal common bile duct. ERCP follow-up recommended for further evaluation. Cholelithiasis and a mildly distended gallbladder. No gallbladder wall thickening. * Gastroenterology consult -- appreciate input * General Surgery consult -- appreciate input * Continue IV Ceftriaxone 1g daily * Continue IVF NSS + 20 meq KCl @ 100ml/hr * Zofran prn nausea * Famotidine 20mg IV BID * Morphine 4mg IV prn, Toradol 30mg IV prn * LFTs improving --> Tbili improved to 2.1 (previously 5.7 on 12/14), AST/ALT 163/465, alk phos 114 * Tandem ERCP and cholecystectomy today (12/17) (2) Jaundice: * See above (3) Gallstones: * See above (4) GERD (gastroesophageal reflux disease): * Changed oral pantoprazole to IV famotidine for procedure (5) Hypertension: * Chronic. Lisinopril 20mg/HCTZ 12.5mg on hold --> will continue to hold * BP stable at 153/89. Continue to monitor (6) DVT prophylaxis: * SCDs * Chemoprophylaxis held for proceudre today Dispo: OR today Admission and Anticipated Discharge Date Admission Date: December 14, 2019 Supervising Physician Co-Signing Physician Notes PA Supervision Note: I did not personally see or examine the patient today, but I verified all saldana points of JOSH Romano's assessment and plan with the following exceptions/additions: ECG reviewed and ok. No evidence of CHF or cardiac issues, is hypertensive but BP med on hold. FOllow closely post-op Subjective Patient evaluated this morning. States he was told by surgery that he would be having procedure this morning but then was told by midlevel from GI that the surgery may not be able to occur today. Patient stated frustration with waiting this week but that it was ok, but this morning and scheduling conflicts have the patient frustrated. He denies abdominal pain, and states that if he felt as well as he does now over the weekend that he wouldn't be here any longer. He states he did have some pain two days ago and had significant nausea and vomiting two nights ago. States he did have some discomfort that he relates to positional changes, but his pain was at its worse several days ago that was epigastric/RUQ with right back/scapular pain while laying flat. Discussed plan to coordinate procedures today. Denies current chest pain, shortness of breath, nausea, vomiting, d/v, fever, chills. Review of Systems Review of Systems: All systems reviewed & are unremarkable except as noted in HPI & below Physical Exam Constitutional: WD/WN, vitals as above no acute distress Eyes: + anicteric sclerae and PERRL Neck: trachea midline, no thyromegaly Respiratory: normal respiratory effort, lungs clear to auscultation Cardiovascular: Rate/Rhythm: regular rate and regular rhythm Heart Sounds: normal S1, normal S2 and + gallop (S3) Gastrointestinal (Abdomen): Inspection/Auscultation: abdomen normal to inspection and normal bowel sounds; abdomen not distended Percussion/Palpation: + abdomen tender (minimally tender RUQ to deep palpation) and abdomen soft; no guarding, abdomen not rigid and no hepatosplenomegaly Musculoskeletal: no cyanosis or clubbing, extremities motor strength 5/5 Skin: no rashes, warm and dry Neurologic: PERRL, EOMI, accommodation nl, no face palsy, no dysarthria Psychiatric: A+Ox3, euthymic affect Lymphatic: no cervical or axillary lymphadenopathy Results & Data ([facility]) Vital Signs (Past 12 Hours) Vital Signs Temp Pulse Resp BP Pulse Ox 12/17/19 07:28 36.5 C 55 L 16 153/89 H 97 12/16/19 23:28 36.8 C 57 L 15 141/82 H 97 Laboratory Results 12/17/19 12/17/19 Range/Units 05:21 05:21 WBC 4.03 L (4.8-10.8) K/uL RBC 3.79 L (4.7-6.1) M/uL Hgb 12.2 L (14.0-18.0) g/dL Hct 35.5 L (42-52) % MCV 93.7 (80-100) fL MCH 32.2 (25-34) pg MCHC 34.4 (32-36) g/dL RDW Std Deviation 45.9 (36.4-46.3) fL RDW Coeff of Maia 13.4 (11.5-14.5) % Plt Count 206 (130-400) K/uL MPV 9.7 (7.4-10.4) fL Immature Gran % (Auto) 0.0 % Neut % (Auto) 50.2 % Lymph % (Auto) 34.2 % [place] % (Auto) 10.7 % Eos % (Auto) 4.2 % Baso % (Auto) 0.7 % Immature Gran # (Auto) 0.00 (0.00-0.02) K/uL Neut # (Auto) 2.02 (1.4-6.5) K/uL Lymph # (Auto) 1.38 (1.2-3.4) K/uL [place] # (Auto) 0.43 (0.11-0.59) K/uL Eos # (Auto) 0.17 (0-0.5) K/uL Baso # (Auto) 0.03 (0-0.2) K/uL Sodium 145 (136-145) mmol/L Potassium 3.7 (3.5-5.1) mmol/L Chloride 113 H (98-107) mmol/L Carbon Dioxide 25 (21-32) mmol/L Anion Gap 7.0 (3-11) BUN 10 (7-18) mg/dl Creatinine 1.02 (0.6-1.4) mg/dl Est Cr Clr Drug Dosing 88.2 ml/min Est GFR ( Amer) 96.1 Est GFR (Non-Af Amer) 82.9 BUN/Creatinine Ratio 9.3 L (10-20) Glucose 87 (70-99) mg/dl Calcium 8.5 (8.5-10.1) mg/dl Total Bilirubin 2.1 H (0.2-1) mg/dl AST 163 H (15-37) U/L ALT 465 H (12-78) U/L Alkaline Phosphatase 114 (45-117) U/L Total Protein 6.1 L (6.4-8.2) gm/dl Albumin 2.9 L (3.4-5.0) gm/dl Globulin 3.2 (2.5-4.0) gm/dl Albumin/Globulin Ratio 0.9 (0.9-2) Lipase 145 (73-393) U/L PG Care Time/CCT Total # of Minutes Spent Total Time Spent with Patient: Total time spent is greater than 50% in coordination of care (as documented) at patient's floor/unit and/or counseling patient: Coding Level of Care Code 39804 Subseq Hosp Care Lvl 2 Diagnoses Cholelithiasis with biliary obstruction K80.21 Jaundice R17 Gallstones K80.20 GERD (gastroesophageal reflux disease) K21.9 Hypertension I10 DVT prophylaxis Z29.9
--- NOTE | 2019-12-17 12:21 | History & Physical Bridge Note ---
Date of Service December 17, 2019 History & Physical Bridge Note I have examined the patient, reviewed the History & Physical and in the interval since the performance of the History & Physical I have noted the following changes of clinical significance: no changes noted pt seen procedure discussed with him and SO all questions answered
--- NOTE | 2019-12-17 14:12 | Anesthesiology Consultation ---
Date of Service December 17, 2019 Assessment & Plan (1) Encounter for pre-operative examination: Chart Review Chart Review: Acceptable Risk for Surgery and Patient NOT seen in Pre Admission Testing Consults Requested none History Surgery Operation Date: 12/17/19 10:00 Proposed Procedures p Laparoscopic Cholecystectomy - Chalo Murray MD, FACS s Endoscopic Retrograde Cholangiopancreatogram - Jemima Matthew MD Height/Weight Height: 5 ft 11 in Weight: 77.1 kg Allergies Allergy/AdvReac Type Severity Reaction Status Date / Time kiwi Allergy Unknown Unknown Unverified 12/14/19 19:50 pollen extracts Allergy Unknown WATERY Verified 12/14/19 19:50 EYES AND CONGESTION shellfish derived Allergy Unknown SOB, Verified 12/14/19 19:50 SWEATING No Known Drug Allergies Allergy Unknown Verified 12/14/19 19:50 Medications Home Medications Medication Instructions Recorded Confirmed Last Taken lisinopril 20 1 tab PO DAILY 06/07/19 12/14/19 12/14/19 mg-hydrochlorothiazide 12.5 mg tablet pantoprazole 40 mg tablet,delayed 40 mg PO DAILY #30 tab 12/13/19 12/14/19 12/14/19 release Marshmallow Supp 1 tab PO DAILY 12/14/19 12/14/19 Unknown acetaminophen [Tylenol Extra 1,000 mg PO Q6H PRN 12/14/19 12/14/19 Unknown Strength] aloe vera 0 mg PO DAILY 12/14/19 12/14/19 Unknown Active Medications Generic Name Dose Route Start Last Admin Trade Name Freq PRN Reason Stop Dose Admin Lisinopril/HCTZ 1 tab 12/16/19 09:00 12/17/19 07:38 Prinzide 20/12.5mg PO 01/15/20 08:59 1 tab DAILY JAGUAR Administration Famotidine 20 mg/ Syringe 5 mls @ 2.5 mls/min 12/14/19 22:00 12/17/19 10:01 IV 01/13/20 21:59 2.5 mls/min Q12H JAGUAR Administration Potassium Chloride/Sodium Chloride 20 meq in 1,000 mls @ 100 mls/hr 12/14/19 22:15 12/17/19 10:01 Normal Saline W/20 Meq Kcl IV 01/13/20 22:14 100 mls/hr .Q10H JAGUAR Administration Ceftriaxone Sodium 1,000 mg/ 50 mls @ 100 mls/hr 12/14/19 10:30 12/17/19 08:43 Dextrose IV 12/24/19 10:29 Infused DAILY JAGUAR Infusion Ketorolac Tromethamine 30 mg 12/14/19 21:35 12/14/19 23:53 Toradol IV 12/19/19 21:34 30 mg Q6H PRN Administration Moderate Pain Pantoprazole Sodium 40 mg 12/16/19 09:00 12/17/19 07:39 Protonix PO 01/15/20 08:59 40 mg DAILY JAGUAR Administration NPO Date Last Intake of Fluids: 12/16/19 Time Last Intake of Fluids: 23:59 Date Last Intake of Solids: 12/16/19 Time Last Intake of Solids: 23:59 Past Medical History Medical History Cardiac murmur A CHILD Chronic back pain GERD (gastroesophageal reflux disease) Hiatal hernia SMALL Hypertension (Unknown) Sleep apnea CPAP Temporomandibular joint disorder CLICKS ON OCC HAS NEVER LOCKED Past Family History Family History Father Family history of esophageal cancer, Onset Age: 60 age 62 Brother Family hx of colon cancer, Onset Age: 61 Past Surgical History Surgical History H/O eye surgery MUSCLE X 2 History of colonoscopy History of esophagogastroduodenoscopy (EGD) Nausea and vomiting after administration of anesthetic agent Social History Smoking Status: Never smoker Do You Dip or Chew Tobacco: No Hx Alcohol Use: Yes Alcohol type: beer and wine alcohol intake frequency: a few times a month Hx Substance Use: No substance use type: does not use Physical Exam Vital Signs Last Vital Signs Temp 36.5 C 12/17/19 07:28 Pulse 55 L 12/17/19 07:28 Resp 16 12/17/19 07:28 BP 153/89 H 12/17/19 07:28 Pulse Ox 97 12/17/19 07:28 Testing Laboratory Results 12/17/19 05:21 12/17/19 05:21 PT 10.7 Seconds (9.0-12.0) 12/14/19 19:00 INR 1.0 (0.9-1.1) 12/14/19 19:00 APTT 22.2 Seconds (21.0-31.0) 12/14/19 19:00 Electrocardiogram Date: 12/17/19 Findings: + SB @ (57)
[2019-12-17] MEDS ORDERED: fentaNYL citrate 100 MCG/2 ML VIAL ONE ×2 (14:37→16:59)
[2019-12-17] MEDS ORDERED: MIDAZOLAM HCL 1 MG/ML 2ML VIAL ONE (14:37)
[2019-12-17] MEDS ORDERED: ONDANSETRON INJ 2 MG/ML 2 ML VIAL IV PRN (14:50)
[2019-12-17] MEDS ORDERED: ePHEDrine sulfate 50 MG/ML AMP IV PRN (14:50)
[2019-12-17] MEDS ORDERED: PROMETHAZINE HCL 6.25 MG in SODIUM CHLORIDE 0.9% 50 ML IV PRN (14:50)
[2019-12-17] MEDS ORDERED: ATROPINE SULFATE 0.1 MG/ML 10ML SYR IV PRN (14:50)
[2019-12-17] MEDS ORDERED: fentaNYL citrate 100 MCG/2 ML VIAL IV PRN (14:50)
--- NOTE | 2019-12-17 14:51 | History & Physical Bridge Note ---
Date of Service December 17, 2019 History & Physical Bridge Note I have examined the patient, reviewed the History & Physical and in the interval since the performance of the History & Physical I have noted the following changes of clinical significance: no changes noted
[2019-12-17] MEDS ORDERED: CONRAY 60% 50 ML VIAL ONE (14:57)
[2019-12-17] MEDS ORDERED: LIDOCAINE/EPINEPHRINE 1% 20 ML VIAL ONE (14:57)
--- NOTE | 2019-12-17 15:49 | Operative Report ---
Post Operative Report Pre & Post Diagnosis Operation Date: 12/17/19 10:00 Pre-Op Diagnosis: BILIARY DUCTAL DILITATION,CHOLELITHIASIS, Common Bile Duct Stone Post-Op Diagnosis: BILIARY DUCTAL DILITATION,CHOLELITHIASIS, Common Bile Duct Stone I identified the patient and participated in the time-out.: Yes Procedure Operation Date: 12/17/19 10:00 Actual Procedures p Laparoscopic Cholecystectomy - Kye Hinsno MD s Endoscopic Retrograde Cholangiopancreatogram with Stent Placement(Not Applicable) - Jemima Matthew MD Surgeon Jemima Matthew MD Tool Technician None Estimated Blood Loss 0 Findings See Below (CBD sludge and pus removed, CBD stent placed) Specimens None Description of Procedure ERCP I attest to the content of the Intraoperative Record and any orders documented therein. Any exceptions are noted below.
[2019-12-17] MEDS ORDERED: PROPOFOL IV EMULSION 10 MG/ML 20 ML VIAL IV ONE (16:12)
[2019-12-17] MEDS ORDERED: LIDOCAINE HCL 2% 2 ML VIAL/AMP(20MG/ML) INFIL ONE (16:12)
[2019-12-17] MEDS ORDERED: GLYCOPYRROLATE 0.2 MG/ML VIAL ONE (16:12)
[2019-12-17] MEDS ORDERED: DEXAMETHASONE SOD INJ 4 MG/ML VIAL ONE (16:12)
[2019-12-17] MEDS ORDERED: ROCURONIUM BROMIDE 10 MG/ML 5 ML VIAL ONE (16:12)
[2019-12-17] MEDS ORDERED: ONDANSETRON INJ 2 MG/ML 2 ML VIAL ONE (16:12)
[2019-12-17] MEDS ORDERED: LARYING-O-JET KIT (LTA) ONE (16:12)
[2019-12-17] MEDS ORDERED: NEOSTIGMINE METHYLSULFATE 5 MG/5 ML SYR ONE (16:12)
[2019-12-17] MEDS ORDERED: LACTATED RINGER'S 1,000 ML IV SCH (16:15)
[2019-12-17] MEDS ORDERED: LABETALOL HCL IV 5 MG/ML 20ML IV ONE ×2 (16:34)
--- NOTE | 2019-12-17 17:17 | Post Operative Brief Note ---
PG Immediate Post Op with CF Date of Surgery December 17, 2019 Pre & Post Diagnosis Operation Date: 12/17/19 10:00 Pre-Op Diagnosis: BILIARY DUCTAL DILITATION,CHOLELITHIASIS, Common Bile Duct Stone Post-Op Diagnosis: BILIARY DUCTAL DILITATION,CHOLELITHIASIS, Common Bile Duct Stone, Sludge and Pus I identified the patient and participated in the time-out.: Yes Procedure Operation Date: 12/17/19 10:00 Actual Procedures p Laparoscopic Cholecystectomy - Kye Hinson MD s Endoscopic Retrograde Cholangiopancreatogram with Stent Placement(Not Applicable) - Jemima Matthew MD The patient in the supine position had been under general anesthesia for an ERCP that was just completed and the abdomen was shaved and prepped chlorhexidine and properly draped timeout was had patient was identified small incision was made supraumbilically sufficient enough for a Veress needle followed by CO2 followed by 5 mm trocar point of interest bacteroids identified direct visualization a 5 mm epigastric 2 5 Douglas subcostal trocar trochars were placed with preemptive local analgesia gallbladder was placed under traction with the lateral trocar was thick-walled but no re-adhesions were identified we dissected out the neck of the gallbladder after turning the patient in the left lateral position in reverse Trendelenburg moderate amount of edema in the area was appreciated mostly was done by blunt dissection we able to create a window about around the cystic duct at its takeoff we clipped approximately a small opening cystic duct was made a #5 4 ureteral catheter was transverse to the abdominal wall a 14 Angiocath position the cystic duct serial x-rays were taken which show the very a corkscrew cystic duct free flow into the duodenum and the patient had a biliary stent quite obviously seen the cystic duct as stated with multiple corkscrew in appearance at this point catheter was then removed we choked up on the cystic duct and were able to clip with twice with 5 mm trocar clips without any difficulty gallbladder then removed in antegrade fashion using electrocautery prior to freeing the gallbladder completely from the liver bed the subhepatic area was checked more stays appear satisfactory gallbladder was taken in Endopouch and taken out intact through the epigastric port we could see cholesterolosis I really did not see any significant stones in the gallbladder although we did open up completely we did take cultures of the gallbladder contents been caused by ERCP really did not find any stones except what it feels to be pus. Subhepatic suprahepatic areas then checked and states appear satisfactory we placed the camera right subcostal port to visualize the umbilical entry site which no adhesions appreciated and then intubated individual trochars were taken out on direct visualization we identified that the lateral trocar site was a little bleeder and were able to control that with the electrocautery from inside the abdomen until we were able under control. 4- 0 Monocryl was then used to close the skin incision and Steri-Strips applied procedure was tolerated well by the patient estimated blood loss 5 cc addendFlorencio mcconnell was present throughout the procedure and help to retraction exposure camera work and wound closure Surgeon Kye Hinson MD [employer] Counselor None Estimated Blood Loss 10 (0 ml for ERCP, 10ml for Lap. Cholcystecomty) Findings Consistent with Post-Op Diagnosis Specimens Specimen Description: Permanent Specimen A: Gallblader Culture 1: Gallbladder
--- NOTE | 2019-12-17 17:26 | Post Operative Brief Note ---
PG Immediate Post Op with CF Date of Surgery December 17, 2019 Pre & Post Diagnosis Operation Date: 12/17/19 10:00 Pre-Op Diagnosis: BILIARY DUCTAL DILITATION,CHOLELITHIASIS, Common Bile Duct Stone Post-Op Diagnosis: BILIARY DUCTAL DILITATION,CHOLELITHIASIS, Common Bile Duct Stone, Sludge and Pus I identified the patient and participated in the time-out.: Yes Procedure Operation Date: 12/17/19 10:00 Actual Procedures p Laparoscopic Cholecystectomy - Kye Hinson MD s Endoscopic Retrograde Cholangiopancreatogram with Stent Placement(Not Applicable) - Jemima Matthew MD Surgeon Kye Hinson MD Certified Pharmacy Technician None Estimated Blood Loss 10 (0 ml for ERCP, 10ml for Lap. Cholcystecomty) Findings Consistent with Post-Op Diagnosis Specimens Specimen Description: Permanent Specimen A: Gallblader Culture 1: Gallbladder
--- NOTE | 2019-12-17 18:03 | Fluoroscopy Report ---
INTRAOPERATIVE CHOLANGIOGRAM HISTORY: Post cholecystectomy. FLUOROSCOPY TIME: 2 seconds 3 fluoroscopic spot images.. FINDINGS: Fluoroscopy was provided for an intraoperative cholangiogram status post cholecystectomy. C ontrast was injected through the cystic duct remnant. The common bile duct is normal in course and ca liber. There are no filling defects seen within the common bile duct to suggest a retained stone. Co ntrast extends into the small bowel. There is no intrahepatic bile duct dilatation. There is an indwe lling common bile duct stent which appears in good position. IMPRESSION: Fluoroscopy provided for an intraoperative cholangiogram status post cholecystectomy. No filling defects within the common bile duct. A common bile duct stent appears in good position. ACT 112: Negative or not required by law. Electronically signed by: Jose Carlos Horowitz M.D. 12/17/2019 6:02 PM
--- NOTE | 2019-12-17 18:05 | Fluoroscopy Report ---
FL ERCP biliary ductal CLINICAL HISTORY: EXPLORE DUCTS COMPARISON STUDY: MRCP 12/14/2019. FLUOROSCOPY TIME: 3 minutes 11 seconds. FINDINGS: 9 fluoroscopic spot images demonstrate cannulation of the ampulla with injection of contras t into the common bile duct stent. A plastic common bile duct stent was removed. A balloon sweep was performed. No suspicious filling defects within the common bile duct. This is followed by placement o f a plastic common bile duct stent which appears in good position. IMPRESSION: Fluoroscopy provided for ERCP. ACT 112: Negative or not required by law. Electronically signed by: Jose Carlos Horowitz M.D. 12/17/2019 6:03 PM
--- NOTE | 2019-12-17 18:18 | Anesthesiology Progress Note ---
Date of Service December 17, 2019 Anesthesia Post Procedure Vital Signs Vital Signs: Temp Pulse Pulse Resp BP Pulse Ox 12/17/19 17:50 36.3 C L 47 L 18 152/92 H 100 12/17/19 17:40 52 L 16 153/94 H 100 12/17/19 17:30 49 L 16 136/89 100 12/17/19 17:20 45 L 19 146/89 H 100 12/17/19 17:10 36.1 C L 48 L 17 140/91 100 12/17/19 14:37 36.5 C 71 18 163/86 H 99 12/17/19 07:28 36.5 C 55 L 16 153/89 H 97 12/16/19 23:28 36.8 C 57 L 15 141/82 H 97 Pain Intensity Right Abdomen: Pain Intensity: 4 Abdomen: Pain Intensity: 3 Transfer of Care Handoff Completed per policy Notes Mental Status: alert / awake / arousable and participated in evaluation Patient Amnestic to Procedure: Yes Nausea / Vomiting: adequately controlled Pain: adequately controlled Airway Patency, RR, SpO2: stable & adequate BP & HR: stable & adequate Hydration State: stable & adequate Anesthetic Complications: no major complications apparent
[2019-12-17] MEDS ORDERED: OXYCODONE/ACETAMINOPHEN 5mg/325mg TAB PO PRN (18:24)
[2019-12-17] MEDS ORDERED: MoRPHine SULFATE 2 MG/ML CARP IV PRN (18:24)
--- NOTE | 2019-12-17 19:58 | Operative Report ---
PG Post Operative Report Pre & Post Diagnosis Operation Date: 12/17/19 10:00 Pre-Op Diagnosis: BILIARY DUCTAL DILITATION,CHOLELITHIASIS, Common Bile Duct Stone Post-Op Diagnosis: BILIARY DUCTAL DILITATION,CHOLELITHIASIS, Common Bile Duct Stone, Sludge and Pus I identified the patient and participated in the time-out.: Yes Procedure Operation Date: 12/17/19 10:00 Actual Procedures p Laparoscopic Cholecystectomy(Not Applicable) - Kye Hinson MD s Endoscopic Retrograde Cholangiopancreatogram with Stent Placement(Not Applicable) - Jemima Matthew MD Dictating department on laparoscopic cholecystectomy cholangiogram The patient was in the supine position under general endotracheal anesthesia she just completed undergoing ERCP with stent placement the abdomen was shaved and prepped with chlorhexidine and properly draped timeout was had patient was identified made a small incision supraumbilically sufficient to place a Veress needle followed by CO2 followed by 5 mm trocar and direct visualization attention was turned to the right upper quadrant where a 5 mm epigastric trocar was placed with preemptive local anesthesia 1% Xylocaine and 2 5 mm subcostal ports in a similar fashion the lateral trocar site was used to elevate the gallbladder which was thick-walled with a normal color we then were able to place the left patient left lateral position sufficiently in reverse Trendelenburg to expose down towards the neck of the gallbladder where sharp dissection was used to free up the tissue around the gallbladder neck ident ifying the cystic duct which is slightly bigger than normal 5 mm clip was used to clip proximally at its takeoff small opening cystic duct was made and #4 urethral catheter transversing abdominal wall and a 14 Angiocath was positioned in the cystic duct serial x-rays were taken which showed free flow into the duodenum although it did show very corkscrew long cystic duct the stent was in place there is no extravasation Cholangiocath was then removed we choked on the cystic duct sufficiently to doubly clipped of and divided the artery anterior branch was doubly clipped and divided we also had a posterior branch in a similar fashion the gallbladder was taken out in antegrade fashion using electrocautery leaving as much posterior peritoneum was possible the gallbladder was placed in Endopouch and taken out intact through the epigastric port subhepatic suprahepatic area was then checked hemostasis appear satisfactory no bleeding was identified we put the camera right upper quadrant trocar site and visualize the umbilical opening there is no adhesions there. Individual trochars were taken out on direct visualization last the umbilical trocar wounds were closed 4-0 Monocryl Steri-Strips applied procedure was tolerated well by the patient estimated blood loss 5 cc addendum we took cultures of the gallbladder recurrence talking to equalizing saw operator when he did the ERCP thought he had some pus coming out of the common bile duct. Thank you Surgeon Kye Hinson MD [employer] Operator None Estimated Blood Loss 10 (0 ml for ERCP, 10ml for Lap. Cholcystecomty) Findings Consistent with Post-Op Diagnosis Specimens gallbladder and contents Description of Procedure merda I attest to the content of the Intraoperative Record and any orders documented therein. Any exceptions are noted below.
[2019-12-17] MEDS: MoRPHine SULFATE 4 MG/ML 1 ML CARP\\VIAL IV PRN ×2 (20:42→23:45)
[2019-12-17] MEDS: OXYCODONE/ACETAMINOPHEN 5mg/325mg TAB PO PRN (22:55)
[2019-12-17] MEDS: SODIUM CHLORIDE 0.9% 1000ML 1,000 ML IV SCH (23:30)
[2019-12-18] MEDS: OXYCODONE/ACETAMINOPHEN 5mg/325mg TAB PO PRN ×2 (05:03→10:08)
[2019-12-18 06:36] LABS: Basophils # (auto) 0.01 K/uL (0-0.2); Basophils % (auto) 0.1 %; Eosinophils # (auto) 0.02 K/uL (0-0.5); Eosinophils % (auto) 0.3 %; Hematocrit (blood only) 36.1 % (42-52); Hemoglobin 12.7 g/dL (14.0-18.0); Immature Granulocytes # (auto) 0.01 K/uL (0.00-0.02); Immature Granulocytes % (auto) 0.1 %; Lymphocytes # (auto) 1.12 K/uL (1.2-3.4); Mean Corpuscular Hemoglobin 32.6 pg (25-34); Mean Corpuscular Hgb Conc 35.2 g/dL (32-36); Mean Corpuscular Volume 92.6 fL (80-100); Monocytes # (auto) 0.64 K/uL (0.11-0.59); Monocytes % (auto) 9.2 %; Neutrophils # (auto) 5.18 K/uL (1.4-6.5); Neutrophils % (auto) 74.3 %; Platelet Count 247 K/uL (130-400); RDW Coefficient of Variation 12.9 % (11.5-14.5); RDW Standard Deviation 43.1 fL (36.4-46.3); White Blood Count 6.98 K/uL (4.8-10.8)
[2019-12-18 07:07] LABS: Albumin Level 3.2 gm/dl (3.4-5.0); BUN Creatinine Ratio 10.6 (10-20); Calcium 8.8 mg/dl (8.5-10.1); Creatinine Clr Calc Pharmacy 78.2 ml/min; Est GFR (African American) 83.2; Est GFR (Non-African American) 71.7; Potassium 3.7 mmol/L (3.5-5.1)
[2019-12-18 07:10] LABS: Albumin Globulin Ratio 0.9 (0.9-2); Globulin 3.4 gm/dl (2.5-4.0); Total Protein 6.6 gm/dl (6.4-8.2)
--- NOTE | 2019-12-18 07:30 | Surgery Progress Note ---
Date of Service December 18, 2019 Assessment & Plan (1) Cholelithiasis with biliary obstruction: Surgical point of view the patient can be discharged today instruction were given not to drive for 3 days do not lift anything heavier than 10 pounds for 3 days return to our office in 1 week PRN basis He does have a biliary stent and we will leave that up to the tobacco scrap sifter to make follow-up arrangements Intraoperative findings were discussed with the patient Subjective Dyllan is doing well resting comfortably no abdominal discomfort a status post lap diane cholangiogram after an ERCP done yesterday Physical Exam Physical Exam: Is alert coherent comfortable voided fine The abdomen was benign trocar sites are healing well no drainage Results & Data Vital Signs (Past 12 Hours) Vital Signs Temp Pulse Resp BP Pulse Ox 12/18/19 03:52 36.5 C 77 16 115/67 96 12/17/19 23:35 158/90 H 97 12/17/19 22:46 37.2 C 58 L 22 161/87 H 98 12/17/19 21:29 36.6 C 72 16 149/87 H 96 12/17/19 20:17 36.4 C L 61 16 152/88 H 97 PG Care Time/CCT Total # of Minutes Spent Total Time Spent with Patient: Total time spent is greater than 50% in coordi nation of care (as documented) at patient's floor/unit and/or counseling patient: Coding Level of Care Code None Diagnoses Cholelithiasis with biliary obstruction K80.21
[2019-12-18] MEDS: SODIUM CHLORIDE 0.9% 1000ML 1,000 ML IV SCH (07:50)
--- NOTE | 2019-12-18 08:15 | Anesthesiology Progress Note ---
Date of Service December 18, 2019 Anesthesia Post Procedure Vital Signs Vital Signs: Temp Pulse Pulse Resp BP Pulse Ox Pulse Ox 12/18/19 08:00 96 12/18/19 07:43 36.3 C L 53 L 16 127/72 96 12/18/19 03:52 36.5 C 77 16 115/67 96 12/17/19 23:35 158/90 H 97 12/17/19 22:46 37.2 C 58 L 22 161/87 H 98 12/17/19 21:29 36.6 C 72 16 149/87 H 96 12/17/19 20:17 36.4 C L 61 16 152/88 H 97 12/17/19 19:19 37.2 C 54 L 14 152/88 H 98 12/17/19 18:41 36.3 C L 58 L 20 169/95 H 100 12/17/19 18:10 37.1 C 58 L 20 166/98 H 100 12/17/19 17:50 36.3 C L 47 L 18 152/92 H 100 12/17/19 17:40 52 L 16 153/94 H 100 12/17/19 17:30 49 L 16 136/89 100 12/17/19 17:20 45 L 19 146/89 H 100 12/17/19 17:10 36.1 C L 48 L 17 140/91 100 12/17/19 14:37 36.5 C 71 18 163/86 H 99 Pain Intensity Right Abdomen: Pain Intensity: 4 Abdomen: Pain Intensity: 4 Notes Mental Status: alert / awake / arousable and participated in evaluation Patient Amnestic to Procedure: Yes Nausea / Vomiting: adequately controlled Pain: adequately controlled Airway Patency, RR, SpO2: stable & adequate BP & HR: stable & adequate Hydration State: stable & adequate Anesthetic Complications: no major complications apparent and Pt Satisfied with anesthetic care
[2019-12-18] MEDS: LISINOPRIL/HCTZ 20/12.5MG 1 TAB TAB PO SCH (08:40)
[2019-12-18] MEDS: PANTOprazole 40 MG TAB PO SCH (08:40)
[2019-12-18] MEDS: cefTRIAXone SODIUM 1,000 MG in DEXTROSE 5% 50 ML IV SCH (08:40)
[2019-12-18] MEDS: FAMOTIDINE 20 MG in SYRINGE 3 ML IV SCH (09:12)
--- NOTE | 2019-12-18 11:24 | Gastroenterology Progress Note ---
Date of Service December 18, 2019 Assessment & Plan (1) Cholelithiasis with biliary obstruction: (2) Elevated LFTs: Pt is a 54 y/o male, admitted with abd pain, nausea, elevated LFTs, found to have cholelithiasis and likely choledocholithiasis. He is currently POD #1 s/p ERCP w choledocholithiasis removal, biliary sphincterectomy & biliary stent placement; lap cholecystectomy. Doing relatively well, LFTs w mild increase - F/U w PCP within 1 week and trend LFTs - Given pus findings in bile duct, should continue antibiotics for at least 10 days total - Avoid NSAIDs and ASA 5 days after biliary sphincterectomy - Diet already advanced - No absolute contraindication for DC home. We will call him to schedule repeat ERCP for biliary stent removal in 4-6 week's time Admission and Anticipated Discharge Date Admission Date: December 14, 2019 Subjective Pt c/o soreness on abdomen. Denies any n/v. Has been walking hallways. Hasn't passed flatus or BMs Noted LFTs mildly increased this AM Review of Systems Review of Systems: All systems reviewed & are unremarkable except as noted in HPI & below Physical Exam Constitutional: WD/WN, vitals as above well groomed, cooperative and comfortable Eyes: PERRL, conjunctivae normal, anicteric sclerae ENMT: external ear and nose normal, oropharynx normal Respiratory: normal respiratory effort, lungs clear to auscultation Cardiovascular: RRR, no murmur, no edema Gastrointestinal (Abdomen): Inspection/Auscultation: + hypoactive bowel sounds Percussion/Palpation: + abdomen tender (diffuse) and abdomen soft lap diane trocar insertion sites covered w steri strips. Skin: no rashes, warm and dry no jaundice Psychiatric: A+Ox3, euthymic affect Lymphatic: no lymphedema Results & Data ([facility]) Vital Signs (Past 12 Hours) Vital Signs Temp Pulse Resp BP Pulse Ox Pulse Ox 12/18/19 08:00 96 12/18/19 07:43 36.3 C L 53 L 16 127/72 96 12/18/19 03:52 36.5 C 77 16 115/67 96 12/17/19 23:35 158/90 H 97
[2019-12-18] MEDS ORDERED: DOCUSATE SODIUM 100 MG CAP PO STA (11:50)
[2019-12-18] MEDS ORDERED: POLYETHYLENE (MIRALAX) 17 GM PACK PO SCH (12:00)
[2019-12-18] MEDS ORDERED: COUGH DROP (SUGAR FREE) LOZ 24 LOZ/1 BOX BUCCAL PRN (12:28)
[2019-12-18] MEDS ORDERED: GLUCAGON FOR INJ 1 MG VIAL ONE (14:29)
--- NOTE | 2019-12-18 15:18 | Discharge Summary ---
Date of Service December 18, 2019 Admission HPI Per Admitting Provider The patient is a 54 yo Male who developed abdominal discomfort and nausea 4 days ago on Tuesday. He was seen at the outpatient office, and labs and abdominal US ordered were abnormal, and he was sent to the ED for further assessment. Admission Exam Per Admitting Provider Physical Exam: The patient is awake, alert and oriented 3, well developed and well nourished, normocephalic and atraumatic, lying in bed and in no acute distress. HEENT--PERRL, EOMI, scleral icterus noted. Mucous membranes and oropharynx dry. Neck--supple. No JVD. No bruits. Thyroid normal, trachea midline, no adenopathy. Heart--normal S1 and S2. No murmurs, rubs or gallops. Lungs--clear bilaterally, no respiratory distress, no accessory muscle use. Abdomen--normal bowel sounds and soft. Nondistended. Mildly tender epigastrium and right upper quadrant. Mildly tympanitic. Extremities--no cyanosis or clubbing. No edema. Dermatologic--normal skin turgor, jaundiced appearing Neurologic--cranial nerves II through XII grossly intact. Rheumatologic--normal range of motion. Psychiatric--normal affect. Discharge Exam Constitutional WD/WN, vitals as above no acute distress Eyes + anicteric sclerae and PERRL Neck trachea midline, no thyromegaly Respiratory normal respiratory effort, lungs clear to auscultation Cardiovascular Rate/Rhythm: regular rate and regular rhythm Heart Sounds: normal S1, normal S2 and + gallop (S3) Gastrointestinal (Abdomen) Inspection/Auscultation: abdomen normal to inspection and normal bowel sounds; abdomen not distended Percussion/Palpation: + abdomen tender (minimally tender RUQ to deep palpation) and abdomen soft; no guarding, abdomen not rigid and no hepatosplenomegaly Musculoskeletal no cyanosis or clubbing, extremities motor strength 5/5 Skin no rashes, warm and dry Neurologic PERRL, EOMI, accommodation nl, no face palsy, no dysarthria Psychiatric A+Ox3, euthymic affect Lymphatic no cervical or axillary lymphadenopathy Discharge Data Allergies Allergy/AdvReac Type Severity Reaction Status Date / Time kiwi Allergy Unknown Unknown Unverified 12/14/19 19:50 pollen extracts Allergy Unknown WATERY Verified 12/14/19 19:50 EYES AND CONGESTION shellfish derived Allergy Unknown SOB, Verified 12/14/19 19:50 SWEATING No Known Drug Allergies Allergy Unknown Verified 12/14/19 19:50 Consultations 12/14/19 18:59 ED Decision to Admit Stat 12/14/19 22:06 Consult Case Management - Discharge Planning Routine 12/15/19 09:29 Consult Gastroenterology Routine 12/15/19 10:21 Consult General Surgery Routine Procedures Performed Operation Date: 12/17/19 10:00 Actual Procedures p Laparoscopic Cholecystectomy(Not Applicable) - Kye Hinson MD s Endoscopic Retrograde Cholangiopancreatogram with Stent Placement(Not Applicable) - Jemima Matthew MD Ordered Studies 12/14/19 22:06 MR MRCP Stat 12/17/19 [place] cholangiogram OR Routine 12/17/19 14:30 FL ERCP biliary ductal Routine Hospital Course (1) Cholelithiasis with biliary obstruction: * Cholelithiasis with intrahepatic and extrahepatic biliary obstruction/jaundice/gallstones- * MRCP showing mild intra and extrahepatic bile duct dilatation. Questionable punctate stone at the distal common bile duct. ERCP follow-up recommended for further evaluation. Cholelithiasis and a mildly distended gallbladder. No gallbladder wall thickening. * Gastroenterology consult -- appreciate input * General Surgery consult -- appreciate input * Continue IV Ceftriaxone 1g daily * Continue IVF NSS + 20 meq KCl @ 100ml/hr * Zofran prn nausea * Famotidine 20mg IV BID * Morphine 4mg IV prn, Toradol 30mg IV prn * LFTs improving --> Tbili improved to 2.1 (previously 5.7 on 12/14), AST/ALT 163/465, alk phos 114 * Tandem ERCP and cholecystectomy today (12/17) (2) Jaundice: * See above (3) Gallstones: * See above (4) GERD (gastroesophageal reflux disease): * Changed oral pantoprazole to IV famotidine for procedure (5) Hypertension: * Chronic. Lisinopril 20mg/HCTZ 12.5mg on hold --> will continue to hold * BP stable at 153/89. Continue to monitor (6) DVT prophylaxis: * SCDs * Chemoprophylaxis held for proceudre today Dispo: OR today Discharge Plan Discharge Items Patient Disposition: Home - Self-Care Reason For Visit: BILIARY DUCTAL DILITATION,CHOLELITHIASIS Discharge Diagnosis: laparoscopic cholecystectomy for inflamed gallbladder with obstruction Condition on Discharge: Good Goals: You have been hospitalized for an urgent problem which required surgery. During your stay at [facility], we have made an effort to correct the problem that brought you to the hospital while keeping you as comfortable as possible. Surgery and medications were used to bring your condition under control and your discharge instructions will include directions for any medications you should take after leaving the hospital. Please make sure to follow the advice of your surgeon regarding follow up with the surgeon and with your primary care provider. Activity: Per Instructions section Lifting: No more than 10 pounds Bathing Comment: may shower; no soaking in tubs Exercise/Sports: Wait until after follow-up appointment Driving/Machine Use: do not resume driving while taking narcotics for pain Non-emergency contact: Primary Care Provider and Surgeon Call non-emergency contact if: you have any medication questions, your symptoms worsen, your pain is not controlled, your pain is unusual for you, you have a fever, your temperature is above 101.5, your wound has increased redness, your wound has increased drainage and your wound pain has increased Follow-up/Referrals: Yoshi Perea MD [Primary Care Provider] - Kye Hinson MD [Surgeon] - (Please call to schedule follow up in clinic within 1 week) Jemima Matthew MD [Hospitalist] - ([facility] next 4-6 weeks) Diet: Regular Ambulatory Orders: Comprehensive Metabolic Panel (Routine) Timeframe: 3 Days Location: Determined by Patient Ordered By: Chrissy Montelongo Attending Provider Instructions: Please do not take Tylenol while you are taking Percocet for post operative pain. Percocet has Tylenol in it. You should NOT exceed 3grams of Acetaminophen within a 24 hour time period. You are being sent home with a prescription for antibiotics. You had previously been receiving these while hospitalized, and it is determined that given the extent of findings during surgery, you should continue antibiotics for 10 days. You have already received 5 days worth. --You should take Augmentin 875mg by mouth TWICE DAILY for the next 5 days. --You have been given a prescription for pain medication, percocet. This contains tylenol. Please do not exceed 3,000mg in a 24 hour period of time. This may increase risk of constipation. You may utilize over the counter miralax and colace as given in the hospital to assist with this. You should avoid all NSAIDs (ibuprofen, motrin, aleeve, naproxen, etc) as this increases your risk of bleeding. You should have repeat labs drawn by Tuesday. A slip has been provided. This is to ensure that your liver enzymes return to normal. Please follow up with your primary care provider in the next 5-7 days. You should follow up with Surgery (Dr. Hinson) in the next week. If you do not hear from them, please call their office at [phone]. You will be contacted regarding an ERCP (procedure that you had during surgery for stent placement) in the next 4-6 weeks by GI (Dr. Matthew) for removal of your stent. If you do not receive a call, please call their office at . Please return to the emergency department if you have any worsening abdominal pain, fever, chills, or for any symptoms that are concerning for you. It has been a pleasure being a part of the medical team providing for you during your hospitalization. Take care! Pending Studies at Discharge: Yes Studies:: surgical pathology Stand-Alone Forms: [facility], Opioid Pain Management, Work/School Release (Inpt) Medications and DC Order Prescriptions: New oxycodone-acetaminophen [Percocet] 5-325 mg tablet 1 - 2 tab PO .q4-6h PRN (Reason: pain, for initial therapy, max 6 tabs per day) Qty: 15 RF: 0 amoxicillin-pot clavulanate [Augmentin] 875-125 mg tablet 1 tab PO BID 5 Days Qty: 10 RF: 0 Continued lisinopril-hydrochlorothiazide 20-12.5 mg tablet 1 tab PO DAILY RF: 0 pantoprazole [Protonix] 40 mg tablet,delayed release (DR/EC) 40 mg PO DAILY Qty: 30 RF: 2 Marshmallow Supp 1 tab PO DAILY RF: 0 aloe vera 25 mg Capsule 0 mg PO DAILY RF: 0 Discontinued acetaminophen [Tylenol Extra Strength] 500 mg Tablet 1,000 mg PO Q6H PRN (Reason: Pain) RF: 0 Discharge Orders: Discharge Order (Routine); Ordered 12/18/19 Ordered By: Chrissy Romano Admission Data Admit Date/Time: 12/14/19 20:36 Attending Provider: Gisele Monroe Admit Provider: Paco Vergara Primary Care Provider: Yoshi Perea Other Providers: Maikol Douglas ; Paco Vergara ; Efrain Sanford ; Chalo Murray Coding Diagnoses Cholelithiasis with biliary obstruction K80.21 Jaundice R17 Gallstones K80.20 GERD (gastroesophageal reflux disease) K21.9 Hypertension I10 DVT prophylaxis Z29.9
--- NOTE | 2019-12-18 15:45 | GI REPORT ---
Patient Name: Juan Bazan Procedure Date: 12/17/2019 2:58 PM Date of : 1965 Admit Type: Inpatient Age: 54 Gender: Male Attending MD: Jemima Matthew MD Procedure: ERCP Providers: Jemima Matthew MD Referring MD: Lucita Minor Indications: Abdominal pain of suspected biliary origin, Abnormal MRCP, Evaluation and possible treatment of bile duct stone(s), Elevated liver enzymes Medicines: General Anesthesia Complications: No immediate complications. Estimated Blood Loss: Estimated blood loss: none. Procedure: Pre-Anesthesia Assessment: - Prior to the procedure, a History and Physical was performed, and patient medications, allergies and sensitivities were reviewed. The patient's tolerance of previous anesthesia was reviewed. - The risks and benefits of the procedure and the sedation options and risks were discussed with the patient. All questions were answered and informed consent was obtained. - Patient identification and proposed procedure were verified prior to the procedure by the physician and the nurse. The procedure was verified in the procedure room. - Pre-procedure physical examination revealed no contraindications to sedation. After obtaining informed consent, the scope was passed under direct vision. Throughout the procedure, the patient's blood pressure, pulse, and oxygen saturations were monitored continuously. The Scope was introduced through the mouth, and advanced to the duodenum and used to inject contrast into the bile duct. The ERCP was accomplished without difficulty. The patient tolerated the procedure well. Findings: The drum stock clerk film was normal. The esophagus was successfully intubated under direct vision. The scope was advanced to a normal major papilla in the descending duodenum without detailed examination of the pharynx, larynx and associated structures, and upper GI tract. The upper GI tract was grossly normal. The ventral pancreatic duct was inadvertently cannulated, the wire was kept in place to assist in double wire technique. A 0.035 inch straight standard wire was passed into the biliary tree. The Fusion OMNI sphincterotome was passed over the guidewire and the bile duct was then deeply cannulated. Contrast was injected. I personally interpreted the bile duct images. Ductal flow of contrast was adequate. Image quality was adequate. Contrast extended to the main bile duct. The main bile duct was mildly dilated. The largest diameter was 9 mm. The biliary orifice was stenotic. This appeared benign. Biliary sphincterotomy was made with a monofilament traction (standard) sphincterotome using ERBE electrocautery. There was no post-sphincterotomy bleeding. The biliary tree was swept with an 11.5 mm balloon starting at the bifurcation. Pus was swept from the duct. Sludge was swept from the duct. One 10 Fr by 8 cm plastic biliary stent with a single external flap and a single internal flap was placed into the common bile duct. Bile flowed through the stent. The stent was in good position. Indomethacin 100 mg was given via suppository to decrease the risk of post-ERCP pancreatitis (PEP). Impression: - Benign biliary papillary stenosis. - The entire main bile duct was mildly dilated. - A biliary sphincterotomy was performed. - The biliary tree was swept and pus and sludge were found. - One plastic biliary stent was placed into the common bile duct. Recommendation: - Return patient to hospital [facility]al for ongoing care. - Avoid aspirin and nonsteroidal anti-inflammatory medicines for 5 days. - Repeat ERCP in 4 weeks to remove stent. Jemima Matthew MD 12/17/2019 4:07:16 PM Note Initiated On: 12/17/2019 2:58 PM Number of Addenda: 0 I attest to the content of the Intraoperative Record and orders documented therein, exceptions below {[id number]}
== END 2019-12-18 16:23 | disposition home or self-care (01) | DRG 419 ==
LOC: ED 18:33 → SUATTDRO 20:36 → 3W 20:36